=== PATIENT | female | born 1970 | race Asian ===

== ENCOUNTER 2017-02-22 09:57 | Emergency (ER) | payer MEDICAID ==
[~2017-02-22] VITALS: Ht 154.9 cm; Wt 63.6 kg
[2017-02-22] MEDS ORDERED: METHOCARBAMOL 500 MG TABLET PO ONE (10:15)
[2017-02-22] MEDS ORDERED: KETOROLAC TROMETHAMINE 60 MG/2 ML VIAL IM ONE (10:15)
[2017-02-22 10:45] VITALS: BP 159/102
== END 2017-02-22 10:59 | disposition home or self-care (01) ==
LOC: EMS 09:59
DX: S39.012A Strain of muscle, fascia and tendon of lower back, initial encounter (principal); R03.0 Elevated blood-pressure reading, without diagnosis of hypertension; E03.9 Hypothyroidism, unspecified; X50.1XXA Overexertion from prolonged static or awkward postures, initial encounter; Y93.E2 Activity, laundry; Y92.89 Other specified places as the place of occurrence of the external cause; Y99.8 Other external cause status
CPT/HCPCS: 96372; 99283; J1885